=== PATIENT | male | born 2000 | race Caucasian/White ===

== ENCOUNTER 2022-04-03 10:58 | Emergency (ER) | payer BC ==
[~2022-04-03] VITALS: Ht 172.7 cm; Wt 74.8 kg
[2022-04-03 11:18] VITALS: BP 117/70
--- NOTE | 2022-04-03 11:25 | NUR ---
21 y/o MALE BIB FRIEND S/P MECHANICAL FALL GOING DOWN STAIRS. pT STATES HE CANNOT PUT ANY PRESSURE ON RIGHT FOOT AND IT APPEARS SWOLLEN. PMHX: DENIES ALLERGIES: DENIES
--- NOTE | 2022-04-03 12:16 | NUR ---
Pt returned from radiology to lobby
[2022-04-03] MEDS ORDERED: IBUP-1842 PO (14:29)
--- NOTE | 2022-04-03 14:50 | NUR ---
SHORT LEG SPLINT PLACED ON PT'S RIGHT LOWER EXTREMITY. CMS INTACT BEFORE AND AFTER SPLINT PLACEMENT. NAOMI FERNANDEZ MADE AWARE SPLINT IS READY FOR INSPECTION.
--- NOTE | 2022-04-03 15:02 | NUR ---
Patient discharged with v/s stable. Written and verbal after care instructions given. Patient alert, oriented and verbalized understanding of instructions. Ambulatory with steady gait. All questions addressed prior to discharge. ID band removed. Patient advised to follow up with PMD. Rx of Ibuprofen given. Opportunity to ask questions provided and answered. WORK NOTE HANDED TO PATIENT.
[2022-04-03 15:03] VITALS: BP 123/65
--- NOTE | 2022-04-03 15:15 | NUR ---
The patient's care was reviewed and supervised by Krissy Jay RN.
== END 2022-04-03 15:03 | disposition home or self-care (01) ==
LOC: MED 10:58
DX: S93.401A Sprain of unspecified ligament of right ankle, initial encounter (principal); Z79.899 Other long term (current) drug therapy; Z98.890 Other specified postprocedural states; X58.XXXA Exposure to other specified factors, initial encounter; Y93.01 Activity, walking, marching and hiking; Y92.89 Other specified places as the place of occurrence of the external cause; Y99.8 Other external cause status
CPT/HCPCS: 29515; 73610; 73630; 99284